=== PATIENT | female | born 1985 | race Caucasian/White ===

== ENCOUNTER 2017-03-20 12:35 | Emergency (ER) | payer MEDICAID ==
[~2017-03-20] VITALS: Ht 154.9 cm; Wt 81.8 kg
[~2017-03-20 12:35] MED LIST: OXYC-158 PO
[2017-03-20] MEDS ORDERED: KETOROLAC TROMETHAMINE 60 MG/2 ML VIAL IM ONE (14:30)
[2017-03-20 15:40] VITALS: BP 134/86
== END 2017-03-20 15:44 | disposition home or self-care (01) ==
LOC: EMS 12:36
DX: R51 Headache (principal)
CPT/HCPCS: 96372; 99283; J1885

== ENCOUNTER 2019-11-14 19:56 | Emergency (ER) | payer MEDICAID ==
[~2019-11-14] VITALS: Ht 154.9 cm; Wt 81.8 kg
[2019-11-14] MEDS ORDERED: PREN-155 PO (20:01)
[2019-11-14 22:10] VITALS: BP 136/82
== END 2019-11-14 23:30 | disposition home or self-care (01) ==
LOC: EMS 19:56
DX: S29.012A Strain of muscle and tendon of back wall of thorax, initial encounter (principal); R51 Headache; F41.9 Anxiety disorder, unspecified; V23.3XXA Person boarding or alighting a motorcycle injured in collision with car, pick-up truck or van, initial encounter; Y93.89 Activity, other specified; Y92.488 Other paved roadways as the place of occurrence of the external cause; Y99.8 Other external cause status

== ENCOUNTER 2020-12-16 17:32 | Emergency (ER) | payer OTHER ==
[~2020-12-16] VITALS: Ht 154.9 cm; Wt 72.7 kg
[~2020-12-16 17:32] MED LIST changes: -OXYC-158 PO; +PREN-155 PO
[2020-12-16 20:50] LABS: BASOPHILS % (AUTO) 0.6 % (0.0-2.0); EOSINOPHILS % (AUTO) 0.7 % (1.0-6.0); HEMOGLOBIN 10.6 g/dL (12.0-16.0); LYMPHOCYTES # (AUTO) 1.9 K/uL (1.0-4.8); LYMPHOCYTES % (AUTO) 20.8 % (22.0-44.0); MEAN CORPUSCULAR HEMOGLOBIN 24.2 pg (26.0-34.0); MEAN CORPUSCULAR HGB CONC 31.2 G/dL (31.0-37.0); MEAN CORPUSCULAR VOLUME 78 fL (80-100); MONOCYTES # (AUTO) 0.7 K/uL (0.1-1.0); MONOCYTES % (AUTO) 7.5 % (2.0-9.0); NEUTROPHILS # (AUTO) 6.5 K/uL (1.8-7.7); NEUTROPHILS % (AUTO) 70.4 % (40.0-70.0); PLATELET COUNT (AUTO) 302 K/uL (150-450); RED BLOOD CELL COUNT(AUTO) 4.38 MIL/uL (4.00-5.20); RED CELL DISTRIBUTION WIDTH 16.8 % (11.5-14.5)
[2020-12-16 22:30] VITALS: BP 140/90
== END 2020-12-16 22:45 | disposition home or self-care (01) ==
LOC: EMS 17:33
DX: N93.8 Other specified abnormal uterine and vaginal bleeding (principal)
CPT/HCPCS: 76801; 76817; 84702; 85025; 86901; 99284